=== PATIENT | female | born 1995 | race Caucasian/White ===

== ENCOUNTER 2017-04-12 13:55 | Emergency (ER) | payer OTHER ==
[2017-04-12] MEDS ORDERED: ONDANSETRON 4 MG TAB.RAPDIS PO ONE (14:46)
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
[2017-04-12 16:58] VITALS: BP 112/68
== END 2017-04-12 16:58 | disposition home or self-care (01) ==
LOC: ER 13:55
DX: S06.0X0A Concussion without loss of consciousness, initial encounter (principal); S70.01XA Contusion of right hip, initial encounter; M25.551 Pain in right hip; M54.2 Cervicalgia; R51 Headache; V43.52XA Car driver injured in collision with other type car in traffic accident, initial encounter; Y92.488 Other paved roadways as the place of occurrence of the external cause; Z98.890 Other specified postprocedural states; R25.2 Cramp and spasm
CPT/HCPCS: 99284; 72040; 73502; 70450; S0119